=== PATIENT | female | born 1960 | race Caucasian/White ===

== ENCOUNTER 2019-09-13 11:08 | Emergency (ER) | payer SELFPAY ==
[2019-09-13 11:20] VITALS: BMI 21.4
[2019-09-13 11:24] VITALS: BP 134/86; PULSE 68; RESP 16; O2SAT 99
[2019-09-13 11:25] VITALS: BP 134/86; PULSE 68; RESP 16; TEMP 36.6; O2SAT 99
--- NOTE | 2019-09-13 12:02 | ED_ITS ---
HPI - Abdominal Pain General: Chief Complaint: Abdominal Pain Stated Complaint: constipation Time Seen by Provider: 09/13/19 11:23 Source: patient Mode of arrival: ambulatory Limitations: no limitations History of Present Illness: HPI narrative: Unable to have BM x 10 days Severity: moderate Quality: cramping and fullness Associated Symptoms: Reports constipation Review of Systems General: Reports: 10 or more systems reviewed and unremarkable except in HPI and below GI: Reports: abdominal pain, constipation and rectal pain Physical Exam Const: COMMON NORMALS: no acute distress, patient oriented x3, no limitations and alert GENERAL APPEARANCE: cooperative and comfortable ORIENTATION/CONSCIOUSNESS: Yes awake, Yes oriented to person, Yes oriented to place and Yes oriented to time HENMT: COMMON NORMALS: normocephalic, atraumatic, external ears normal, EAC's normal, TM's normal bilaterally and Normal external nose present HEAD & SCALP: normal to inspection, normocephalic and atraumatic FACE & SINUS: normal facial exam, sinuses nontender and face symmetric NOSE: Normal external nose present, Normal nares present and No nasal discharge present EXTERNAL EAR: Yes external ears normal EXTERNAL AUDITORY CANAL: EAC's normal TYMPANIC MEMBRANE: TM's normal bilaterally MOUTH: Normal oral and palatal mucosa present, lip normal and tongue normal THROAT: posterior oropharynx normal, tonsils normal and uvula midline Eye: COMMON NORMALS: Equal, round and reactive pupils present, EOMs intact bilaterally and conjunctivae normal GENERAL EYE: appearance normal, both eyes and all related structures and normal light reflex EYELID: eyelids normal CONJUNCTIVA: Yes conjunctivae normal PUPIL: Yes Equal, round and reactive pupils present EOM: Yes EOM abnormal DIRECT OPHTHALMOSCOPY: Yes normal light reflex Neck/C-Spine: COMMON NORMALS: full ROM, no lymphadenopathy, supple, no meningeal signs, no JVD and Thyroid normal GENERAL: Yes normal visual inspect ion THYROID: Thyroid normal CERVICAL SPINE: Yes cervical ROM normal and Yes normal cervical lordosis Lymph: LYMPHATIC: no lymphadenopathy noted Chest: COMMONS NORMALS: normal inspection of the chest and normal palpation of entire chest wall Resp: COMMON NORMALS: normal respiratory effort, No retractions and clear to auscultation bilaterally AUSCULTATION: clear to auscultation bilaterally Cardio: COMMON NORMALS: no JVD, regular rate, regular rhythm, S1 normal heart sound present, S2 normal heart sound present, No gallops present (Cardio), No clicks present (Cardio), No murmurs present (Cardio), No rub (Cardio) and Peripheral pulses 2+ throughout RATE: regular rate RHYTHM: regular rhythm HEART SOUNDS: S1 normal heart sound present and S2 normal heart sound present PERIPHERAL PULSES: Peripheral pulses 2+ throughout GI: COMMON NORMALS: Normal to inspection, nondistended, normoactive bowel sounds present, Soft to palpation, non-tender and no masses AUSCULTATION: Yes Hypoactive bowel sounds present PALPATION: Yes Soft to palpation and Yes Tenderness to palpation present (GI) Details: LLQ and RLQ : COMMON NORMALS: Yes no CVA tenderness and Yes normal external appearance BLADDER/KIDNEY EXAM: Yes no CVA tenderness Back/Pelvis: COMMON NORMALS: no CVA tenderness, thoracic and lumbar spine normal to inspection, no thoracic nor lumbar tenderness and thoraco-lumbar ROM normal Extremity: COMMON NORMALS: normal to inspection, full ROM, capillary refill normal, no joint enlargement, no clubbing, cyanosis or edema, no calf tenderness and no pedal edema GENERAL: Yes normal exam except as noted Neuro: COMMON NORMALS: patient oriented x3, moves all extremities, no focal motor deficits, no sensory deficits noted and gait normal SENSORIUM/ORIENTATION: Yes alert, Yes oriented to person, Yes oriented to place and Yes oriented to time MENINGEAL SIGNS: Yes no meningeal signs Psych: COMMON NORMALS: mental status grossly normal, Normal thought process present, cooperative, normal affect, speech normal and activity/motor behavior normal SPEECH: Yes normal speech THOUGHT PROCESS: Normal thought process present Skin: COMMON NORMALS: no rashes or lesions noted, no wounds and turgor normal GENERAL SKIN EXAM: no rashes or lesions noted and turgor normal Procedures Rectal Disimpaction Time out performed rectal disimpaction: Yes Indication: fecal impaction Procedural Sedation: No Sedation/Analgesia: none Technique: manual disimpaction with gloved finger Result: significant stool output Patient Tolerated Procedure: well Complications: none Course ED course: Pt uable to have BM in 10 days. Has hx of her hirschsprung disease and did get a bit dehydrated when she was working outside earlier this week. We are going to do a milk and molasses enema at bedside; if pt is unable to have BM, may need to do digital decal disimpactment. Reevaluation(s): Reevaluation #1: Pt only had a small BM after enema. Maunaul disimpactment was done at bedside; pt tolerated well with significant stool output. Will advise to increase fluids and soft diet over the next 2 to three days. Will proceed with DC. Time: 12:52 Vital Signs: Vital signs: Vital Signs Temperature 97.8 F 09/13/19 11:25 Pulse Rate 96 09/13/19 12:36 Respiratory Rate 20 H 09/13/19 12:36 Blood Pressure 134/86 09/13/19 11:25 Pulse Oximetry 97 09/13/19 12:36 Discharge Plan Discharge Patient Disposition: Home Clinical Impression: Constipation Condition: Stable Discharge Diet: Advance as tolerated and GI Soft Discharge Activity: Increase activity as tolerated Activity Restrictions/Additional Instructions: Ensure to drink plenty of fluids. May also get Mag Citrate OTC if needed to help with intermittent constipation. Coding Level of Care Code ED Polishing Wheel Setter for Madhu Fwd Exam Comprehensive
[2019-09-13 12:11] VITALS: PULSE 66; RESP 18; O2SAT 99
--- NOTE | 2019-09-13 12:11 | PC.NURSE ---
Milk of molasses enema administered per dr order. Pt had impaction approx 1.5 cm into the rectum. After approx 20ml instilled, was able to pass the enema catheter past the impaction and pt tolerated the rest of the enema well. Pt has held the enema in for approx 6 minutes now and has wipes, towels and new brief set up at bedside with BSC. Pt is attempting to hold enema as long as she can.
[2019-09-13 12:36] VITALS: PULSE 96; RESP 20; O2SAT 97
--- NOTE | 2019-09-13 12:37 | PC.NURSE ---
Pt unable to pass stool larger than a golf ball. Pt is in significant pain with abd cramping. SENIOR INDUSTRIAL ENGINEER notified and will perform disimpaction at bedside.
== END 2019-09-13 13:09 | disposition home or self-care (01) ==
PROVIDERS: Emergency Provider Nurse Practitioner Family
DX: K59.00 Constipation, unspecified (principal)
CPT/HCPCS: 12345; 45915; 99283